=== PATIENT | male | born 1965 | race Caucasian/White ===

== ENCOUNTER 2023-05-09 16:16 | Outpatient (CLI) | payer BC, SELFPAY ==
[2023-05-09 16:44] LABS: Appearance Urine Clear (Clear); Bilirubin Urine Negative (Negative); Blood Urine Negative (Negative); Color Urine Yellow (Yellow); Glucose Urine Negative (Negative); Hemoglobin* 15.9 gm/dL (13.5-17.5); Ketones Urine Negative (Negative); Leukocyte Esterase Urine Negative (Negative); Mean Corpuscular HGB Conc 34 gm/dL (32-36); Mean Corpuscular Hemoglobin 33 pg (26-34); Mean Corpuscular Volume 97 fL (80-100); Nitrite Urine Negative (Negative); Platelet Count* 240 K/uL (140-440); Protein Urine Negative (Negative); Red Blood Count 4.87 m/uL (4.30-5.90); Urobilinogen Urine 0.2 (0.2-1.0); White Blood Count* 8.31 K/uL (4.50-11.00)
--- NOTE | 2023-05-09 16:45 | CT_ITS ---
INDICATION: SMOKING HISTORY, GREATER THAN 20 PACK YEARS. SCREENING STUDY FOR LUNG CANCER. TECHNIQUE: ROUTINE NONCONTRAST LOW-DOSE CT CHEST. COMPARISON: CT 11/12/2019. FINDINGS: NO PULMONARY NODULES. LUNGS CLEAR. MILD EMPHYSEMA. NO ADENOPATHY. UPPER ABDOMEN UNREMARKABLE. CORONARY ARTERY CALCIFICATIONS ARE PRESENT. NO FRACTURE. UPPER ABDOMEN UNREMARKABLE. IMPRESSION: NEGATIVE FOR LUNG CANCER SCREENING PURPOSES. LUNG RADS CATEGORY 1. NEGATIVE. RECOMMENDATIONS: ANNUAL LOW-DOSE CT CHEST.
[2023-05-09 16:56] LABS: Slide Review Reflex No
[2023-05-09 17:03] LABS: Albumin* 4.6 g/dL (3.3-5.0)
[2023-05-09 17:04] LABS: Chloride* 106 mmol/L (96-114); Sodium* 138 mmol/L (135-149)
[2023-05-09 17:06] LABS: Creatinine* 0.7 mg/dL (0.5-1.5); Estimated Glomerular Filt Rate 107 ml/min
[2023-05-09 17:35] LABS: Potassium* 4.3 mmol/L (3.6-5.1)
[2023-05-09 17:37] LABS: Anion Gap 9 mEq/L (7-15); Aspartate Amino Transferase* 28 U/L (12-35); Bilirubin Total* 1.1 mg/dL (0.1-1.5); Carbon Dioxide* 23 mmol/L (20-32); Cholesterol* 211 mg/dL (90-199); Total Protein* 7.5 g/dL (6.0-8.3)
[2023-05-09 17:38] LABS: Alanine Aminotransferase* 17 U/L (4-50); Alkaline Phosphatase* 81 U/L (40-150); Blood Urea Nitrogen* 24 mg/dL (7-30); Calcium* 9.2 mg/dL (8.4-10.6); Glucose* 115 mg/dL (60-115); HDL Cholesterol* 71 mg/dL (>=40); LDL Cholesterol Calculated 127 mg/dL (<100); Triglycerides* 66 mg/dL (40-149)
[2023-05-09 18:20] LABS: Bacteria Urine Few; RBC Urine 0-2 (0-2); Squamous Epithelial Cell Urine Few (None-Few); WBC Urine 0-2 (0-5)
[2023-05-12 11:25] LABS: PSA Screen* 1.76 ng/mL (0.10-4.00)
== END 2023-05-09 16:17 | disposition home or self-care (01) ==
LOC: CT 16:17
PROVIDERS: PCP Physician Assistant Medical; Visit Provider Physician Assistant Medical
DX: Z12.2 Encounter for screening for malignant neoplasm of respiratory organs (principal); I25.10 Atherosclerotic heart disease of native coronary artery without angina pectoris; Z87.891 Personal history of nicotine dependence; Z00.00 Encounter for general adult medical examination without abnormal findings; I10 Essential (primary) hypertension; Z12.5 Encounter for screening for malignant neoplasm of prostate; Z13.1 Encounter for screening for diabetes mellitus; Z13.6 Encounter for screening for cardiovascular disorders
CPT/HCPCS: 36415; 71271; 80053; 80061; 81001; 84443; 85027; 87086; G0103

== ENCOUNTER 2024-08-19 14:57 | Outpatient (CLI) | payer BC, SELFPAY | END 2024-08-19 14:58 | disposition home or self-care (01) | LOC: NFLDREF 08-25 18:25 | PROVIDERS: PCP Physician Assistant Medical; Referring Provider Physician Assistant Medical; Visit Provider Physician Assistant Medical | DX: Z00.01 Encounter for general adult medical examination with abnormal findings (principal); E78.5 Hyperlipidemia, unspecified; I10 Essential (primary) hypertension; Z11.4 Encounter for screening for human immunodeficiency virus [HIV]; Z11.59 Encounter for screening for other viral diseases; Z12.5 Encounter for screening for malignant neoplasm of prostate | CPT/HCPCS: 80053; 80061; 84443; 86703; 86803; G0103 ==

== ENCOUNTER 2024-08-20 14:38 | Outpatient (CLI) | payer BC, SELFPAY ==
--- NOTE | 2024-08-20 15:00 | CRLHL7_ITS ---
For Patients: As a result of the Cures Act, medical imaging exams and procedure reports are released immediately into your electronic medical record. You may view this report before your referring provider. If you have questions, please contact your health care provider. INDICATION: Lung cancer screening. History of smoking. High risk patient with greater than 30 pack-year smoking history. TECHNIQUE: Low-dose lung cancer screening non-contrast CT chest. Dose reduction techniques were used. COMPARISON: 05/09/2023 FINDINGS: NODULES: Incidental small perifissural nodules are again noted bilaterally. LUNGS AND PLEURA: Mild dependent atelectasis. MEDIASTINUM: No enlarged lymph nodes. CORONARY ARTERY CALCIFICATION: Present. LIMITED UPPER ABDOMEN: 5 millimeter benign right adrenal adenoma. MUSCULOSKELETAL: Unremarkable. IMPRESSION: Negative for lung cancer screening purposes. LUNG-RADS CATEGORY: 2: Benign. RADIOLOGIST RECOMMENDATION: Continue annual screening with low-dose CT chest in 12 months. Please note that all CT scans at this facility use dose modulation, iterative reconstruction, and/or weight-based dosing when appropriate to reduce radiation dose to as low as reasonably achievable. Dictated by Edin Hardin MD @ 08/24/2024 10:25:41 AM (Electronically Signed)
== END 2024-08-20 14:39 | disposition home or self-care (01) ==
LOC: CT 14:39
PROVIDERS: PCP Physician Assistant Medical; Visit Provider Physician Assistant Medical
DX: Z12.2 Encounter for screening for malignant neoplasm of respiratory organs (principal); Z72.0 Tobacco use
CPT/HCPCS: 71271